=== PATIENT | male | born 1970 | race Caucasian/White ===

== ENCOUNTER 2022-12-25 11:56 | Outpatient (CLI) | payer BC, SELFPAY | END 2022-12-25 11:57 | disposition home or self-care (01) | LOC: OP CLINIC 11:57 | PROVIDERS: PCP Physician Assistant Medical; Visit Provider Internal Medicine | DX: Z12.11 Encounter for screening for malignant neoplasm of colon (principal); K57.30 Diverticulosis of large intestine without perforation or abscess without bleeding | CPT/HCPCS: 45378; J2250; J3010 ==

== ENCOUNTER 2023-08-30 09:33 | Outpatient (CLI) | payer BC, SELFPAY ==
--- NOTE | 2023-08-30 11:10 | W.ANESCHARGE ---
Anesthesia Charges Start Date/Time Anesthesia Start Date: 08/30/23 Anesthesia Start Time: 10:55 Stop Date/Time Anesthesia Stop Date: 08/30/23 Anesthesia Stop Time: 11:10
--- NOTE | 2023-08-30 11:14 | W.ANESCHARGE ---
Anesthesia Charges Start Date/Time Anesthesia Start Date: 08/30/23 Anesthesia Start Time: 10:55 Stop Date/Time Anesthesia Stop Date: 08/30/23 Anesthesia Stop Time: 11:10
== END 2023-08-30 09:34 | disposition home or self-care (01) ==
LOC: OP CLINIC 09:34
PROVIDERS: PCP Physician Assistant Medical; Visit Provider Internal Medicine
DX: R12 Heartburn (principal)
CPT/HCPCS: 00731; 43239; 88305; J2704; J3490

== ENCOUNTER 2025-03-10 19:08 | Emergency (ER) | payer BC, SELFPAY ==
[2025-03-10] VITALS (9 sets, daily range): BP systolic 133–143; BP diastolic 78–91; PULSE 67–86; RESP 20; TEMP 35.7; O2SAT 94–100; BMI 28.1
--- OUTSIDE RECORDS SUMMARY | 2025-03-10 19:11 | XMS_ITS | Patient Health Record ---
Author Organization [facility], [facility] Address [address] [place] [id number] Care Team Providers Care Medical Practice Administrator Name Role Phone Fidel Kaplan Unavailable [phone] Allergies No Known Allergies Reason For Referral No Information Plan Of Treatment No Information Insurance Providers Payer Name Payer Address Payer Phone Subscriber Number Group Number Insured Name Patient Relationship to Insured Coverage Start Date Coverage End Date [employer] () [address], [address] [place] [address] [phone] Richardson Darden Self - patient is the insured [facility] [id number] [facility] [address] [address] [place], [place] [id number] Richardson Darden Self - patient is the insured
--- OUTSIDE RECORDS SUMMARY | 2025-03-10 19:11 | XMS_ITS | Clinical Summary ---
[facility] Organization [facility] Address [address] [place] [address] Care Team Providers Care Stage Set Designer Name Role Phone Dejuan Nayak MD Primary Care Provider [phone] Source Comments You are receiving this document as you are listed as the primary care provider,follow-up provider, or the patient has been referred to you for consultation.This is in compliance with the Medicare and[facility] EHR Incentive Program,which states Providers who transition their patient to another setting of careor provider of care or refers their patient to another provider of care shouldprovide summary care record for each transition of care or referral. [facility] Allergies No known active allergies Medications Multiple Vitamins-Minera ls (MULTIVITAMIN OR) Take 1 tablet by mouth daily (every 24 hours). 100 13 04/06/2005 Active omeprazole (PRILOSEC) 20 MG capsule Take 1 Capsule (20 mg) by mouth daily. 05/19/2023 Active Active Problems Problem Noted Date Diagnosed Date Other hyperlipidemia 11/29/2017 IFG (impaired fasting glucose) 11/29/2017 Lateral epicondylitis 06/20/2014 Overview (03/03/2017): Lateral epicondylitis of elbow Resolved Problems Problem Noted Date Diagnosed Date Resolved Date Encounter for sterilization 04/06/2005 08/05/2005 Overview (03/03/2017): LW Onset: [id number] ; Vasectomy Elective Encounters Date Type Department Care Team Description 01/02/2025 9:10 AM CDT Office Visit [facility] [place] [id number] [place] [phone] Christy Marie, OD Examination of eyes and vision (Primary Dx); Myopia with astigmatism and presbyopia, bilateral; Family history of glaucoma from Last 3 Months Immunizations Immunization Administration Dates Next Due Flu Vac Preserv Free (3+yrs) 06/01/2007 Influenza, Unspecified Formulation 06/01/2007 Td 04/06/2005,07/23/1999 Tdap 11/29/2017 Family History Medical History Relation Name Comments Glaucoma Mother Valve Dz Mother Cataract Maternal Grandfather Glaucoma Maternal Grandfather Macular Degeneration Maternal Grandfather Retinal Detachment Maternal Grandfather Cataract Maternal Grandmother Cataract Paternal Grandfather Cataract Paternal Grandmother Amblyopia/Strabismus Negative Family History Diabetes Negative Family History Relation Name Status Comments Mother Maternal Grandfather Maternal Grandmother Paternal Grandfather Paternal Grandmother Social History Tobacco Use Types Packs/Day Years Used Date Smoking Tobacco: Never Smokeless Tobacco: Never Alcohol Use Standard Drinks/Week Comments Yes 0 (1 standard drink = 0.6 oz pur e alcohol) occ Sex and Gender Information Value Date Recorded Sex Assigned at Not on file Legal Sex Male 4:31 AM CDT Gender Identity Not on file Sexual Orientation Not on file Last Filed Vital Signs Vital Sign Reading Time Taken Comments Blood Pressure 115/80 11/29/2017 8:52 AM CDT Pulse 68 11/29/2017 8:52 AM CDT Temperature 36.7 C (98.1 F) 12/02/2011 8:59 AM CDT Respiratory Rate - - Oxygen Saturation - - Inhaled Oxygen Concentration - - Weight 83.5 kg (184 lb) 11/29/2017 8:52 AM CDT Height 175.5 cm (5' 9.1) 11/29/2017 8:52 AM CDT Body Mass Index 27.09 11/29/2017 8:52 AM CDT Plan of Treatment Health Maintenance Due Date Last Done Comments Colon Cancer Screening Plan Due 1972 Hep C Screening (Preventive Services) 1972 PSA Screening Discussion 1972 Prediabetes: HGBA1C 1972 HIV Screening (Preventive Services) 1988 HepB Vaccine (1) 1991 Adult Preventive Visit 11/29/2018 11/29/2017 Pneumococcal Vaccine 50+ Yrs (1 of 1 - PCV) 2022 Zoster/Shingles Vaccine (1 o f 2) 2022 Cholesterol 11/29/2022 11/29/2017, 04/06/2005 COVID-19 Vaccine (1 - 2023-2 5 season) 2024 Influenza Vaccine (#1) 2025 7, 06/01/2007 DTaP/Tdap/Td Vaccine (2 - Tdap) 11/30/2027 11/29/2017, 04/06/2005, 07/23/1999 HepA Vaccine Aged Out No longer eligi ble based on patient's age to complete this topic Hib Vaccine Aged Out No longer eligi ble based on patient's age to complete this topic IPV (Polio) Vaccine Aged Out No longe r eligible based on patient's age to complete this topic MCV4 Vaccine Aged Out No longer eligi ble based on patient's age to complete this topic Meningococcal B Vaccine Aged Out No l onger eligible based on patient's age to complete this topic Procedures Procedure Name Priority Date/Time Associated Diagnosis Comments LIPID PANEL & DIRECT LDL (IF NEEDED) Routine 11/29/2017 9:56 AM CDT Lipid screening from Last 3 Months or Most Recently Relevant to Health Maintenance Results * (ABNORMAL) Lipid Panel and Direct LDL(If Needed) (11/29/2017 9:56 AM CDT) Cholesterol 254(H) 0 - 199 mg/dL PN SOFT Triglycerides 91 4 - 149 mg/dL PN SOFT HDL Cholesterol 61 >39 mg/dL PN SOFT Cholesterol/HDL Ratio Screen 4.2 PN SOFT LDL Calculated 175(H) 19 - 130 mg/dL PN SOFT Non HDL Chol, Calc 193(H) 0 - 159 mg/dL PN SOFT Hours Fasting 12.0 PN SOFT 11/29/2017 9:56 AM CDT 11/29/2017 9:56 AM CDT Narrative PN SOFT - 11/29/2017 10:23 AM CDT Performed at [facility]3], [address] [place] [address] CLIA number [id number] Dejuan Nayak MD LAB_1 Final Result PN SOFT [address] [place] [address] from Last 3 Months or Most Recently Relevant to Health Maintenance Insurance [facility] BL[facility] LINK Care Teams Stage Set Designer Relationship Specialty Start Date End Date Dejuan Nayak MD [address] [place] [address] ANDRE Rocha [id number] PCP - General Family Practice 11/29/17
--- OUTSIDE RECORDS SUMMARY | 2025-03-10 19:11 | XMS_ITS | Clinical Summary ---
Author Organization [facility] Address [address] [place] [id number] Care Team Providers Care Employee Benefits Attorney Name Role Phone No Ref-Primary, Physician Primary Care Provider Allergies No known active allergies Medications ibuprofen (ADVIL/MOTRIN) 600 MG tablet Take 1 tablet (600 mg) by mouth every 6 hours as needed for moderate pain 20 tablet 1 08/04/2019 Active methocarbamol (ROBAXIN) 750 MG tablet Take 1 tablet (750 mg) by mouth 4 times daily as needed for muscle spasms 15 tablet 08/04/2019 Active Social History Tobacco Use Types Packs/Day Years Used Date Smoking Tobacco: Never Assessed Sex and Gender Information Value Date Recorded Sex Assigned at Not on file Legal Sex Male 11:55 PM [employer] Gender Identity Not on file Sexual Orientation Not on file Last Filed Vital Signs Vital Sign Reading Time Taken Comments Blood Pressure 141/86 08/04/2019 7:14 PM [employer] Pulse 63 08/04/2019 7:14 PM [employer] Temperature 36.6 C (97.8 F) 08/04/2019 4:16 PM [employer]IC Respiratory Rate 20 08/04/2019 4:16 PM [employer]CRAFT [employer]CH[employer]IC Oxygen Saturation 99% 08/04/2019 7:14 PM [employer]CRA[employer] Inhaled Oxygen Concentration - - Weight 84.8 kg (186 lb 15.2 oz) 08/04/2019 4:16 PM AIRCRAFT [employer]CH[employer]IC Height 175.3 cm (5' 9) 08/04/2019 4:16 PM [employer]CRAFT [employer]INE [employer]IC Body Mass Index 27.61 08/04/2019 4:16 PM [employer]CRAFT [employer]CH[employer]IC Plan of Treatment Not on file Insurance [place] Care Teams Employee Benefits Attorney Relationship Specialty Start Date End Date No Ref-Primary, Physician PCP - General 08/04/19
--- NOTE | 2025-03-10 20:20 | CRLHL7_ITS ---
For Patients: As a result of the Century Cures Act, medical imaging exams and procedure reports are released immediately into your electronic medical record. You may view this report before your referring provider. If you have questions, please contact your health care provider. INDICATION: Left abdominal and groin pain TECHNIQUE: CT Abdomen and pelvis without i.v. contrast. Coronal and sagittal reformats were obtained. COMPARISON: None FINDINGS: Lower chest: Unremarkable. Liver: Unremarkable. Spleen: Unremarkable. Pancreas: Unremarkable. Gallbladder: Unremarkable. Kidney: Mild left hydroureter, trace renal pelvicaliectasis and left perinephric edema are noted. Adrenal: Unremarkable. Bowel: Moderate diverticulosis of the sigmoid colon is present with no evidence of diverticulitis. Feculent material is seen within the terminal ileum which may be due to stasis. The appendix cannot be identified but there are no inflammatory changes noted in the right lower quadrant. Vascular: Unremarkable. Lymph: There is an 8 mm calcified lymph node adjacent to the intrahepatic IVC. Peritoneum: Unremarkable. Mild ground-glass infiltration of the mesenteric root is noted. No pneumoperitoneum is seen. No significant ascites is noted. Pelvis: Unremarkable. Soft tissue: Unremarkable. Bone: Unremarkable for age. IMPRESSIONS: 1. Mild left hydroureter, trace renal pelvicaliectasis and left perinephric edema are noted. Clinical correlation is recommended to distinguish between a recently passed stone or pyelonephritis. 2. Mild ground-glass infiltration of the mesenteric root is noted. Clinical correlation is recommended to exclude mesenteric panniculitis. Dictated by Saleem Arguelles MD @ 03/10/2025 9:03:58 PM Please note that all CT scans at this facility use dose modulation, iterative reconstruction, and/or weight-based dosing when appropriate to reduce radiation dose to as low as reasonably achievable. Dictated by: Saleem Arguelles MD @ 03/10/2025 21:04:04 (Electronically Signed)
[2025-03-10] MEDS: ONDANSETRON 2 MG/ML inj 4 MG IVP (20:38)
--- NOTE | 2025-03-10 21:10 | ED_ITS ---
HPI - Abdominal Pain General Chief Complaint: Abdominal Pain Stated Complaint: left Sharp Abdominal pain, Vomiting Time Seen by Provider: 03/10/25 19:19 History of Present Illness HPI narrative: This 54-year-old male comes in with his because of onset of severe left- sided abdominal pain radiating down into his groin. This started a few hours prior to arrival. He had associated nausea with vomiting. He reports that he could not get comfortable and was score Abraham and different positions trying to relieve the symptoms. He does not report any personal history of kidney stones nor does he have any family history of such. Related Data Previous Rx's ?Medication ?Instructions ?Recorded omeprazole 20 mg capsule,delayed 20 mg PO DAILY #90 ca ps 08/17/23 release Allergies Allergy/AdvReac Type Severity Reaction Status Date / Time No Known Allergy Allergy Unknown Unknown Uncoded 05/19/23 08:51 Review of Systems Status of ROS Reports: 10 or more systems reviewed and unremarkable except as noted in History and below Narrative Constitutional: No fevers, no weight gain or loss. Eyes: No discharge. No vision changes. HENT: No congestion, no sore throat, no ear pain. Cardiovascular: No chest pain, no palpitations. Respiratory: No shortness of breath, no wheezes, no cough. Gastrointestinal: No diarrhea. Left-sided abdominal pain radiating down into his groin. Nausea with vomiting. Genitourinary: No dysuria, no hematuria. Musculoskeletal: Normal range of motion. Skin: No rashes, no pruritis. Neurological: No dizziness, weakness, sensory change, speech change. Endo/Heme/Allergies: No bruising or bleeding. No polydipsia. Pysch: no suicidality, no anxiety, no insomnia. All other systems reviewed and are negative. [facility] Surgical History (Updated 12/03/22 @ 13:49 by Farida Redd PA-C) History of wisdom tooth extraction ?K08.409 - Partial loss of teeth, unspecified cause, unspecified class (ICD- 10) Social History Smoking Status: Never smoker Non-prescribed substance use: denies use Exam Narrative: Exam Narrative: Constitutional: Well-developed, well-nourished, no acute distress. HEENT: Normocephalic, atraumatic. Neck: Normal range of motion. Nontender. Supple. Heart: Regular. No murmurs. Normal rate. Intact distal pulses. Lungs: Clear to auscultation. No chest discomfort. No wheezes, rhonchi, or rales. Abdomen: Normal bowel sounds. No rebound tenderness. Left-sided lower abdominal pain radiating down into the groin. Genitalia: Deferred. Back: No midline tenderness. Normal range of motion. Extremities: Normal range of motion. No injury. Skin: Intact. No rash. Warm. No erythema or pallor. Neurologic: No altered sensation. No weakness. Alert and oriented. Psychiatric: No suicidality. No anxiety or depression. No insomnia. Nursing notes and vitals signs are reviewed. Const: Vital Signs, click to edit/add: Vital Signs - 24 hr 03/10/25 19:18 03/10/25 20:17 03/10/25 20:30 Temperature 96.2 F L Pulse Rate 76 86 Pulse Rate [Left P ulse Oximeter] 76 Respiratory Rate 20 Blood Pressure Blood Pressure [Ri ght Upper Arm] 143/86 H Pulse Oximetry 100 95 100 Oxygen Delivery Me thod Room Air 03/10/25 20:51 03/10/25 21:00 03/10/25 21:01 Temperature Pulse Rate 67 74 73 Pulse Rate [Left P ulse Oximeter] Respiratory Rate Blood Pressure 133/78 Blood Pressure [Ri ght Upper Arm] Pulse Oximetry 97 94 95 Oxygen Delivery Me thod 03/10/25 21:15 Temperature Pulse Rate 73 Pulse Rate [Left P ulse Oximeter] Respiratory Rate Blood Pressure Blood Pressure [Ri ght Upper Arm] Pulse Oximetry 97 Oxygen Delivery Me thod Course Vital Signs Vital signs: Initial Vital Signs Temperature 96.2 F L 03/10/25 19:18 Temperature Source Temporal Artery Scan 03/10/25 19:18 Pulse Rate 76 03/10/25 19:18 Pulse Rhythm Regular 03/10/25 19:18 Respiratory Rate 20 03/10/25 19:18 Blood Pressure 143/86 H 03/10/25 19:18 Blood Pressure Mean 105 03/10/25 19:18 Blood Pressure Position Sitting 03/10/25 19:18 Pulse Oximetry 100 03/10/25 19:18 Oxygen Delivery Method Room Air 03/10/25 19:18 Vital Signs Temperature 96.2 F L 03/10/25 19:18 Pulse Rate 76 03/10/25 19:18 Respiratory Rate 20 03/10/25 19:18 Blood Pressure 143/86 H 03/10/25 19:18 Pulse Oximetry 100 03/10/25 19:18 Oxygen Delivery Method Room Air 03/10/25 19:18 Temperature 96.2 F L 03/10/25 19:18 Pulse Rate 73 03/10/25 21:15 Respiratory Rate 20 03/10/25 19:18 Blood Pressure 133/78 03/10/25 21:01 Pulse Oximetry 97 03/10/25 21:15 Oxygen Delivery Method Room Air 03/10/25 19:18 Medications Administered Medications: Discontinued Medications Generic Name Dose Route Start Last Admin Trade Name Radha PRN Reason Stop Dose Admin Ketorolac Tromethamine 30 mg 03/10/25 20:21 03/10/25 20:38 Ketorolac 30 Mg/Ml Inj IVP 03/10/25 20:22 30 mg ONCE ONE Administration Ondansetron HCl 4 mg 03/10/25 20:21 03/10/25 20:38 Ondansetron 2 Mg/Ml Inj IVP 03/10/25 20:22 4 mg ONCE ONE Administration MDM - Abdominal Pain MDM Narrative Medical decision making narrative: This patient this patient arrived with rather significant abdominal pain suspicious for a kidney stone. An IV was established where he received Toradol 30 mg and Dilaudid 0.5 mg. He also received Zofran 4 mg. This brought sufficient relief to his symptoms. CT scan of the abdomen and pelvis is obtained and shows no obvious stone but there is some mild hydroureter and hydronephrosis that is suspicious for a recently passed kidney stone. It seems that these findings on CT scan do in fact correlate with typical signs and symptoms of a kidney stone. The patient is okay to be discharged home. His urinalysis is negative for infection. He received [facility] prescriptions for [place], Toradol, and Zofran. Lab Data Labs: Lab Results 03/10/25 Range/Units 21:45 Urine Color Yellow (Yellow) Urine Appearance Clear (Clear) Urine pH 7.0 (5.0-8.5) Ur Specific Adams 1.020 (1.000-1.030) Urine Protein 1+ A (Negative) Urine Glucose (UA) Negative (Negative) Urine Ketones 2+ A (Negative) Urine Blood Trace-intact A (Negative) Urine Nitrite Negative (Negative) Urine Bilirubin Negative (Negative) Urine Urobilinogen 0.2 (0.2-1.0) Ur Leukocyte Esterase Negative (Negative) Urine RBC 0-2 (0-2) Urine WBC 0-2 (0-5) Ur Squamous Epith Cells Few (None-Few) Urine Bacteria Few A (None) Imaging Data CT scan - abdomen: Radiologist's impression: 1. Mild left hydroureter, trace renal pelvicaliectasis and left perinephric edema are noted. Clinical correlation is recommended to distinguish between a recently passed stone or pyelonephritis. 2. Mild ground-glass infiltration of the mesenteric root is noted. Clinical correlation is recommended to exclude mesenteric panniculitis. Discharge Plan Discharge Clinical Impression: Calculus, ureteral Patient Disposition: Home w/ Parent or Adult Condition: Improved Additional Instructions: Take medications as needed and indicated. Follow up with MD return if symptoms are persistent or worsening. Prescriptions: No Action omeprazole 20 mg capsule,delayed release(DR/EC) 20 mg PO DAILY Qty: 90 1RF Follow Up/Referrals: Farida Redd PA-C [Primary Care Provider, Family Practice] Stand Alone Forms: [employer] Info Instructions
[2025-03-10 21:50] LABS: Appearance Urine Clear (Clear)
== END 2025-03-10 22:54 | disposition home or self-care (01) ==
PROVIDERS: Emergency Provider Emergency Medicine Emergency Medical Services; PCP Physician Assistant Medical
DX: N20.1 Calculus of ureter (principal)
CPT/HCPCS: 74176; 81001; 87086; 96374; 96375; 99283; 99284; J1885; J2405; J7030